=== PATIENT | male | born 1965 | race Two or more races ===

== ENCOUNTER 2019-05-08 11:58 | Emergency (ER) | payer SELFPAY ==
[~2019-05-08] VITALS: Ht 175.3 cm; Wt 84.8 kg
[2019-05-08 13:37] LABS: Urine WBC None Seen /hpf (0 - 3)
[2019-05-08 13:45] LABS: Basophils # (auto) 0.1 uL; Basophils % (auto) 1.2 % (0.0-2.0); Eosinophils # (auto) 0.3 uL; Eosinophils % (auto) 3.4 % (0.0-7.0); Hematocrit 47.4 % (41.0-53.0); Hemoglobin 15.8 g/dL (13.5-17.5); Lymphocytes # (auto) 2.1 uL; Lymphocytes % (auto) 26.4 % (10.0-50.0); Mean Corpuscular Hemoglobin 29.8 pg (28.0-32.0); Mean Corpuscular Hgb Conc. 33.3 g/dL (32.0-36.0); Mean Corpuscular Volume 89.5 fL (80.0-100.0); Monocytes # (auto) 0.7 uL; Monocytes % (auto) 9.3 % (0.0-12.0); Neutrophils # (auto) 4.7 uL; Neutrophils % (auto) 59.7 % (37.0-80.0); Platelet Count (auto) 388 10^3/uL (140-450); Red Cell Distribution Width 14.6 % (11.8-14.3); White Blood Cell 7.9 10^3/uL (4.4-10.8)
[2019-05-08 14:07] LABS: Albumin 3.7 g/dL (3.4-5.0); Calcium 9.2 mg/dL (8.5-10.1); Potassium 4.5 mmol/L (3.5-5.1)
[2019-05-08 14:09] LABS: BUN/Creatinine Ratio 14.4
[2019-05-08 14:12] LABS: Bilirubin, Total 0.2 mg/dL (0.2-1.0); Total Protein 7.7 g/dL (6.4-8.2)
[2019-05-08 14:16] LABS: Urine Bacteria NONE SEEN /hpf (None Seen); Urine Blood Negative /uL (Negative); Urine Specific Gravity 1.018 (1.001-1.035)
[2019-05-08] MEDS ORDERED: SODIUM CHLORIDE 0.9% 1,000 ML IVB ONE (15:26)
[2019-05-08 17:02] LABS: Amylase 64 U/L (25-115); Lipase 179 U/L (73-393); Magnesium 2.3 mg/dL (1.6-2.6)
[2019-05-08 17:18] LABS: INR < 0.93 (0.9-1.15); Partial Thromboplastin Time 27.6 sec (23.64-32.05)
[2019-05-08 17:37] VITALS: BP 129/68
== END 2019-05-08 18:25 | disposition home or self-care (01) ==
LOC: ER 12:04
DX: K21.9 Gastro-esophageal reflux disease without esophagitis (principal); K27.9 Peptic ulcer, site unspecified, unspecified as acute or chronic, without hemorrhage or perforation
CPT/HCPCS: 36415; 71045; 74176; 80053; 81001; 82150; 83605; 83690; 83735; 84484; 85025; 85610; 85730; 87040; 93005; 94761

== ENCOUNTER → 2019-06-17 | Outpatient (CLI) | payer MEDICAID ==
[2019-06-17 08:45] LABS: Basophils # (auto) 0.1 uL; Basophils % (auto) 0.9 % (0.0-2.0); Eosinophils # (auto) 0.4 uL; Hematocrit 52.4 % (41.0-53.0); Hemoglobin 17.5 g/dL (13.5-17.5); Lymphocytes # (auto) 2.2 uL; Lymphocytes % (auto) 20.1 % (10.0-50.0); Mean Corpuscular Hemoglobin 30.2 pg (28.0-32.0); Mean Corpuscular Hgb Conc. 33.3 g/dL (32.0-36.0); Mean Corpuscular Volume 90.6 fL (80.0-100.0); Monocytes % (auto) 9.6 % (0.0-12.0); Neutrophils # (auto) 7.1 uL; Neutrophils % (auto) 65.4 % (37.0-80.0); Nucleated Red Blood Cells % 0.1 %; Platelet Count (auto) 376 10^3/uL (140-450); Red Blood Cells 5.78 10^6/uL (4.5-5.90); Red Cell Distribution Width 14.8 % (11.8-14.3); White Blood Cell 10.8 10^3/uL (4.4-10.8)
[2019-06-17 08:46] LABS: Urine Bacteria NONE SEEN /hpf (None Seen); Urine Blood Negative /uL (Negative); Urine WBC <1 /hpf (0 - 3)
[2019-06-17 09:19] LABS: Albumin 3.8 g/dL (3.4-5.0); Calcium 9.6 mg/dL (8.5-10.1); Potassium 5.1 mmol/L (3.5-5.1)
[2019-06-17 09:25] LABS: BUN/Creatinine Ratio 18.1; Bilirubin, Total 0.5 mg/dL (0.2-1.0); Total Protein 8.2 g/dL (6.4-8.2)
== END | disposition home or self-care (01) ==
LOC: LAB 08:26
PROVIDERS: ATTEND Internal Medicine Nephrology
DX: K27.7 Chronic peptic ulcer, site unspecified, without hemorrhage or perforation (principal)
CPT/HCPCS: 36415; 80053; 80061; 81001; 83036; 85025

== ENCOUNTER → 2019-07-02 | Outpatient (CLI) | payer MEDICAID ==
[2019-07-02 08:29] LABS: BUN/Creatinine Ratio 17.6; Calcium 9.4 mg/dL (8.5-10.1)
== END | disposition home or self-care (01) ==
LOC: LAB 07:19
PROVIDERS: ATTEND Internal Medicine Nephrology
DX: I12.9 Hypertensive chronic kidney disease with stage 1 through stage 4 chronic kidney disease, or unspecified chronic kidney disease (principal); N18.9 Chronic kidney disease, unspecified
CPT/HCPCS: 36415; 80048

== ENCOUNTER 2019-07-30 14:14 | Emergency (ER) | payer MEDICAID, OTHER ==
[~2019-07-30] VITALS: Ht 175.3 cm; Wt 95.7 kg
[2019-07-30 14:35] VITALS: BP 133/88
[2019-07-30] MEDS ORDERED: KETOROLAC TROMETH 60MG/2ML VIAL IM ONE (14:45)
== END 2019-07-30 17:15 | disposition home or self-care (01) ==
LOC: ER 14:22
DX: S86.912A Strain of unspecified muscle(s) and tendon(s) at lower leg level, left leg, initial encounter (principal); I10 Essential (primary) hypertension; K21.9 Gastro-esophageal reflux disease without esophagitis; X58.XXXA Exposure to other specified factors, initial encounter; Y93.89 Activity, other specified; Y99.8 Other external cause status; Y92.89 Other specified places as the place of occurrence of the external cause
CPT/HCPCS: 73590; 96372; 99283; J1885

== ENCOUNTER → 2019-08-15 | Outpatient (CLI) | payer MEDICAID | END | disposition home or self-care (01) | LOC: XYW 07:52 | PROVIDERS: ATTEND Internal Medicine | DX: I51.7 Cardiomegaly (principal); I10 Essential (primary) hypertension; R06.02 Shortness of breath | CPT/HCPCS: 93306 ==